=== PATIENT | female | born 1960 | race Caucasian/White ===

== ENCOUNTER 2016-07-15 12:00 | Emergency (ER) | payer BC ==
[2016-07-15 12:05] VITALS: BP 158/92
[2016-07-15] MEDS ORDERED: ACETAMINOPHEN 325 MG TABLET PO ONE (12:09)
--- NOTE | 2016-07-15 12:09 | ER Document Report ---
ED Medical Screen (RME) - General Stated Complaint: TOE PAIN Mode of Arrival: Ambulatory Information source: Patient Notes: Patient presents with leftfoot 5th digit pain after kicking a bag. Took mobic around this 0530. I have greeted and performed a rapid initial assessment of this patient. A comprehensive ED assessment and evaluation of the patient, analysis of test results and completion of the medical decision making process will be conducted by additional ED providers. Physical Exam - Vital signs Vitals: Temp Pulse Resp BP Pulse Ox 98.2 F 79 16 158/92 H 95 07/15/16 12:05 07/15/16 12:05 07/15/16 12:05 07/15/16 12:05 07/15/16 12:05 Course - Vital Signs Vital signs: Temp Pulse Resp BP Pulse Ox 98.2 F 79 16 158/92 H 95 07/15/16 12:05 07/15/16 12:05 07/15/16 12:05 07/15/16 12:05 07/15/16 12:05
[2016-07-15] MEDS ORDERED: OXYCODONE-ACETAMINOPHEN 5-325 MG TABLET PO ONE (13:23)
[2016-07-15] MEDS ORDERED: PROMETHAZINE HCL 25 MG TABLET PO ONE (13:23)
--- NOTE | 2016-07-15 13:48 | ER Document Report ---
ED Extremity Problem, Lower - General Chief Complaint: Toe Injury Stated Complaint: TOE PAIN Mode of Arrival: Ambulatory Notes: Patient injured her left fifth toe this morning when she was walking in her garage. She stubbed the fifth toe on a baseball bag. She says initially the toe was sticking out to the side, but is not quite as much so now, although the patient says the fifth toe is still deviated outward. She did not manipulate the toe. No other injuries or complaints. TRAVEL OUTSIDE OF THE [place] IN LAST 30 DAYS: No - Related Data Allergies/Adverse Reactions: No Known Allergies Allergy (Verified 07/15/16 12:09) Past Medical History - General Information source: Patient - Social History Smoking Status: Current Every Day Smoker Chew tobacco use (# tins/day): Yes Family History: Reviewed & Not Pertinent Patient has suicidal ideation: No Patient has homicidal ideation: No Musculoskeltal Medical History: Reports Hx Arthritis Past Surgical History: Reports: Hx Orthopedic Surgery - 2 surgeries on her neck. Review of Systems - Review of Systems Constitutional: denies: Fever Cardiovascular: denies: Chest pain Respiratory: denies: Cough, Short of breath, Wheezing Gastrointestinal: denies: Abdominal pain, Diarrhea, Vomiting, Constipation Physical Exam - Vital signs Vitals: Temp Pulse Resp BP Pulse Ox 98.2 F 79 16 158/92 H 95 07/15/16 12:05 07/15/16 12:05 07/15/16 12:05 07/15/16 12:05 07/15/16 12:05 Interpretation: Normal - Notes Notes: PHYSICAL EXAMINATION: GENERAL: Well-appearing, in no acute distress. Vital signs are essentially normal. Patient appears to be in some pain. HEAD: Atraumatic, normocephalic. EXTREMITIES: Patient has some soft tissue swelling of the midportion of the left fifth toe. It's very tender to touch. She says it's still deviated laterally from its normal alignment. Otherwise, Normal range of motion without pain. NEUROLOGICAL: Normal speech, normal gait. Normal sensory, motor, and reflex exams. Awake, alert, and oriented x3. Cranial nerves normal. SKIN: Warm, dry, no rashes. No abrasions, breaks in the skin, etc. Course - Vital Signs Vital signs: Temp Pulse Resp BP Pulse Ox 98.2 F 79 16 158/92 H 95 07/15/16 12:05 07/15/16 12:05 07/15/16 12:05 07/15/16 12:05 07/15/16 12:05 - Diagnostic Test Radiology results interpreted by me: 07/15/16 13:56 X-ray reveals a slightly displaced fracture of the proximal phalanx of the left little toe. Procedures - Joint Reduction/Fracture Care Left 5th digit Conscious sedation: No Pre-procedure NV exam: Yes Fracture: Closed Post-procedure NV exam: Yes Reduction attempts: 1 Complications: No Notes: 07/15/16 13:57 I inserted a small round ink pen between the fourth and fifth toes and utilize the pen as a fulcrum over which I quickly bent the fifth toe inward back into its normal position. Patient agrees that it looks like its back and the normal location to her at this time. Discharge - Discharge Clinical Impression: Fracture of toe of left foot Qualifiers: Encounter type: initial encounter Toe: lesser toe Fracture type: closed Phalanx : proximal Fracture alignment: displaced Qualified Code(s): S92.512A - Displaced fracture of proximal phalanx of left lesser toe(s), initial encounter for closed fracture Condition: Stable Disposition: HOME, SELF-CARE Additional Instructions: Fractured Toe You have fractured your toe. Although this fracture doesn't need a cast or splint, emergency evaluation was needed to assess the straightness of the bones and joints. Reduction ("setting") is necessary for toe fractures which are crooked or twisted. A toe fracture will heal in about three weeks. Usually, the fractured toe is taped to the next toe. The second toe acts as a moving splint to protect the broken one. Ice and elevation help during the first 48 hours. You may need crutches at first if walking is painful. When you begin walking, be careful NOT to do things that hurt. If weight bearing is not comfortable within a few days, you may require a special shoe, walking boot, or cast. Call the doctor or return at once if severe swelling, severe pain, or numbness develop in the toe, or if you suspect you may have re-injured it. Jesus Taping Your toes have been taped together -- called "jesus taping." The good toe can act as a moving splint to protect the injured toe. You will probably need to keep the tape in place (replacing it when needed) for about three weeks. A firm shoe over the injured toes is usually a good idea. As a general rule, you shouldn't do anything which causes pain to your taped toes. Taping isn't absolute protection, so match your activity to your degree of healing. If you ever suspect that you have re-injured the toe, return for re-examination. Keep the tape dry. Constant wetness harms the skin. Some cotton between the toes may help if perspiration is a problem. Replace the tape as needed when it becomes loose, weak, or dirty. Replace the tape daily if you are sweating. If the toes swell, discolor, or become numb, loosen the tape. Return here if there are problems. Keep the fifth toe taped to the next toe for the next couple of weeks. You may remove it whenever you want to shower or change the bandage. Oral Narcotic Medication You have been given a prescription for pain control. This medication is a narcotic. It's best taken with food, as nausea can result if taken on an empty stomach. Don't operate machinery or drive within six hours of taking this medication. Do not combine this medicine with alcohol, or with any medication which can cause sedation (such as cold tablets or sleeping pills) unless you get permission from the physician. Narcotics tend to cause constipation. If possible, drink plenty of fluids and eat a diet high in fiber and fruits. FOLLOW-UP CARE: If you have been referred to a physician for follow-up care, call the physician s office for an appointment as you were instructed or within the next two days. If you experience worsening or a significant change in your symptoms, notify the physician immediately or return to the Emergency Department at any time for re-evaluation. Prescriptions: Oxycodone HCl/Acetaminophen [Percocet 5-325 mg Tablet] 1 - 2 tab PO Q4H PRN #15 tablet PRN Reason: Referrals: PAULINO ROQUE MD [Primary Care Provider] - Follow up as needed
== END 2016-07-15 14:03 | disposition home or self-care (01) ==
LOC: ER 12:00
PROC: 0QSRXZZ Reposition Left Toe Phalanx, External Approach (ICD-10-PCS; principal; 2016-07-15)
DX: S92.512A Displaced fracture of proximal phalanx of left lesser toe(s), initial encounter for closed fracture (principal); W21.89XA Striking against or struck by other sports equipment, initial encounter; F17.200 Nicotine dependence, unspecified, uncomplicated
CPT/HCPCS: 99283